=== PATIENT | female | born 1965 | race Two or more races ===

== ENCOUNTER 2023-05-04 15:51 | Emergency (ER) | payer OTHER ==
[~2023-05-04] VITALS: Ht 160 cm; Wt 77.1 kg
[~2023-05-04 15:51] MED LIST: MEDROL PACK PO
[2023-05-04] MEDS ORDERED: AVAPRO75 MG PO (15:57)
[2023-05-04] MEDS ORDERED: LIPITOR20 MG PO (15:57)
[2023-05-04] MEDS ORDERED: HYDROCHLOROTHIA25 MG PO (15:58)
[2023-05-04] MEDS ORDERED: DEXAMETHASONE SODIUM PHOSPHATE 4 MG/ML VIAL IM ONE (17:30)
[2023-05-04 18:27] LABS: HEMATOCRIT 41.1 % (36.0-45.00); HEMOGLOBIN 13.9 g/dL (12.0-15.00); MEAN CELL VOLUME 88.8 fL (80.00-100.00); MEAN CORPUSCULAR HGB CONC 33.8 g/dl (32.0-36.0); PLATELET COUNT 204 K/uL (150-450); RED BLOOD COUNT 4.63 M/uL (4.00-6.00); RED CELL DISTRIBUTION WIDTH 14.2 % (11.5-14.5)
== END 2023-05-04 20:17 | disposition home or self-care (01) ==
LOC: ER 15:52
PROVIDERS: General Practice
DX: B34.9 Viral infection, unspecified (principal); Z20.822 Contact with and (suspected) exposure to COVID-19; I10 Essential (primary) hypertension